=== PATIENT | female | born 1985 | race African-American/Black ===

== ENCOUNTER 2024-08-30 15:17 | Emergency (ER) | payer MEDICAID ==
[~2024-08-30] VITALS: Ht 165.1 cm; Wt 109.0 kg
[~2024-08-30 15:17] MED LIST: IBUP-2030 PO
[2024-08-30 15:37] VITALS: TEMP 36.9; O2SAT 99
[2024-08-30] MEDS: IBUPROFEN 600MG TABLET PO ONE (17:59)
[2024-08-30] MEDS ORDERED: IBUP-2028 MT (19:49)
[2024-08-30] MEDS ORDERED: CEPH500T MT (19:49)
[2024-08-30] MEDS ORDERED: SULF1TAB48 MT (19:49)
[2024-08-30 20:27] VITALS: BP 112/62; PULSE 99; RESP 20; O2SAT 97
== END 2024-08-30 20:28 | disposition home or self-care (01) ==
LOC: ER 15:17
DX: L03.115 Cellulitis of right lower limb (principal); Z79.899 Other long term (current) drug therapy; W57.XXXA Bitten or stung by nonvenomous insect and other nonvenomous arthropods, initial encounter; Y93.89 Activity, other specified; Y92.89 Other specified places as the place of occurrence of the external cause; Y99.8 Other external cause status
CPT/HCPCS: 93971; 99284